=== PATIENT | male | born 1960 | race Caucasian/White ===

== ENCOUNTER 2018-04-13 12:27 | Day surgery (SDC) | payer OTHER ==
[2018-04-13] MEDS ORDERED: DEXAMETHASONE 4 MG/ML VIAL ONE ×2 (13:03→15:52)
[2018-04-13] MEDS ORDERED: BUPIVACAINE 0.5% 30 ML SDV ONE (13:03)
[2018-04-13] MEDS ORDERED: ROPIVACAINE HCL 150 MG/30 ML INJ ONE (13:03)
[2018-04-13] MEDS ORDERED: BACITRACIN 50,000 UNITS/10 ML SYR IRR ONE (13:04)
[2018-04-13] MEDS ORDERED: LIDOCAINE 1% 5 ML SDV ONE ×2 (13:04→15:06)
[2018-04-13] MEDS ORDERED: LR 1,000 ML IV ONE (13:40)
[2018-04-13] MEDS ORDERED: LIDOCAINE 1% 2 ML INJ ID PRN (13:40)
[2018-04-13] MEDS ORDERED: ceFAZolin 2 GM/DEXTROSE 100 ML IV ONE (14:06)
--- NOTE | 2018-04-13 14:08 | PDHPUP ---
History & Physical Update H&P update statement: This history and physical update is based on an assessment of the patient which was completed after admission or registration (within 24 hours), but prior to the surgery/procedure. H&P update: no change in patient's condition since H&P completed (no changes. Patient has had medical H&P clearance ) H&P changes: No changes in health since preop visit
[2018-04-13] MEDS ORDERED: PROPOFOL/EMULSION 500 MG/50 ML BOTTLE IV ONE (14:39)
--- NOTE | 2018-04-13 14:39 | PDANEPAE ---
ANE History of Present Illness here for Toe fusion ANE Past Medical History - Cardiovascular History Hx Hypertension: No Hx Arrhythmias: No Hx Chest Pain: No Hx Coronary Artery / Peripheral Vascular Disease: No Hx CHF / Valvular Disease: No Hx Palpitations: No - Pulmonary History Hx COPD: No Hx Asthma/Reactive Airway Disease: No Hx Recent Upper Respiratory Infection: No Hx Oxygen in Use at Home: No Hx Sleep Apnea: No Sleep Apnea Screening Result - Last Documented: Negative - Neurologic History Hx Cerebrovascular Accident: No Hx Seizures: No Hx Dementia: No Neurologic History Comment: SEIZURES - EPILEPSY - WELL CONTROLLED - Endocrine History Hx Diabetes: No - Renal History Hx Renal Disorders: Yes Renal History Comment: L KIDNEY REMAINING - Liver History Hx Hepatic Disorders: No - Neurological & Psychiatric Hx Hx Neurological and Psychiatric Disorders: No Neurological / Psychiatric History Comment: ANXIETY - Cancer History Hx Cancer: Yes Cancer History Comment: TESTICLE & KIDNEY - Congenital Disorder History Hx Congenital Disorders: No - GI History Hx Gastrointestinal Disorders: No Gastrointestinal History Comment: NEG - Other Health History Other Health History: BASAL CELL - Chronic Pain History Chronic Pain: Yes (TOE) - Surgical History Prior Surgeries: CHILDHOOD CANCER TESTICLE, R KIDNEY. FOOT L BUNION. ANKLE L FX. LASIX ANE Review of Systems Review of Systems: - Exercise capacity METS (RN): 5 METS ANE Patient History - Allergies Allergies/Adverse Reactions: No Known Allergies Allergy (Verified 04/13/18 14:24) - Home Medications Home medications: home medication list seen and reviewed Home Medications: Alprazolam 04/04/18 [Last Taken 04/13/18 08:00] Carbamazepine ER 04/04/18 [Last Taken 04/13/18 08:00] Escitalopram Oxalate 04/04/18 [Last Taken 04/12/18 22:00] Herbals/Supplements -Info Only 04/04/18 [Last Taken 04/12/18 18:00] Lamictal 04/04/18 [Last Taken 04/13/18 08:00] Zolpidem Tartrate 04/04/18 [Last Taken 04/06/18] - NPO status NPO Status: no food or drink >8 hours NPO Since - Liquids (Date): 04/13/18 NPO Since - Liquids (Time): 10:00 NPO Since - Solids (Date): 04/12/18 NPO Since - Solids (Time): 23:00 - Anes Hx Anes Hx: no prior problems - Smoking Hx Smoking Status: Never smoked - Alcohol Use Alcohol Use: Occasionally - Family Anes Hx Family Anes Hx: none Family Hx Anesthesia Complications: NEG ANE Labs/Vital Signs - Vital Signs Blood Pressure: 146/80 Heart Rate: 49 Respiratory Rate: 16 O2 Sat (%): 99 Height: 162.56 cm Weight: 56.699 kg ANE Physical Exam - Airway Neck exam: FROM Mallampati Score: Class 2 Mouth exam: normal dental/mouth exam, garcia - Pulmonary Pulmonary: no respiratory distress, clear to auscultation - Cardiovascular Cardiovascular: regular rate and rhythym, no murmur, rub, or gallop - ASA Status ASA Status: II ANE Anesthesia Plan Anesthesia Plan: GA with mask Total IV Anesthesia: Yes
[2018-04-13] MEDS ORDERED: MIDAZOLAM 2 MG/2 ML VIAL ONE (14:40)
[2018-04-13] MEDS ORDERED: LIDOCAINE 2% 100 MG/5 ML SYR ONE (14:42)
[2018-04-13] MEDS ORDERED: ONDANSETRON 4 MG/2 ML VIAL ONE (15:52)
[2018-04-13] MEDS ORDERED: fentaNYL 100 MCG/2 ML INJ ONE (16:19)
[2018-04-13] MEDS ORDERED: ACETAMINOPHEN 500 MG TAB PO PRN (17:13)
[2018-04-13] MEDS ORDERED: HYDROCODONE/APAP 5/325 TAB PO PRN (17:13)
[2018-04-13] MEDS ORDERED: fentaNYL 100 MCG/2 ML INJ IVP PRN (17:13)
[2018-04-13] MEDS ORDERED: ONDANSETRON 4 MG/2 ML VIAL IVP PRN (17:13)
[2018-04-13] MEDS ORDERED: NALOXONE HCL 0.4 MG/ML INJ IVP PRN (17:13)
[2018-04-13] MEDS ORDERED: oxyCODONE IR 5 MG TAB PO PRN (17:13)
[2018-04-13] MEDS ORDERED: HYDROmorphONE/DILAUDID 2 MG/ML INJ IVP PRN (17:13)
[2018-04-13] MEDS ORDERED: PROMETHAZINE HCL 25 MG/ML INJ IVP PRN (17:13)
--- NOTE | 2018-04-13 17:14 | POSTANESTH ---
Post Anesthetic Evaluation Cardiovascular Status: Normal, Stable, Similar to Pre-Op Cond Respiratory Status: Normal, Stable, Similar to Pre-op Cond. Level of Consciousness/Mental Status: Can Participate in Eval, Alert and Oriented Pain Control: Adequate, Prn Tx Ordered Nausea/Vomiting Control: Adequate, Prn Tx Ordered Complications Possibly Related to Anesthesia: None Noted
--- NOTE | 2018-04-13 17:24 | POSTOPPROG ---
Post Op Note Date of Operation: 04/13/18 Surgeon: Blanche West Web Applications Architect: Karen West Anesthesiologist: Ricardo Watkins MD Anesthesia: LMA Pre-op Diagnosis: hallux rigidus right Post-op Diagnosis: hallux rigidus right Indication: pain ,deformity, advanced DJD Right Procedure: Fusion first MTPJ right foot Findings: Advanced DJD Inf/Abcess present in the surg proc area at time of surgery?: No Depth: Deep Incisional (Fascial) EBL: Minimal Complications: none Specimen(s): none
[2018-04-13 18:25] VITALS: BP 137/62
--- NOTE | 2018-04-14 06:11 | GOP ---
DATE OF OPERATION: SURGEON: Blanche West DPM SOLAR FIELD SERVICE TECHNICIAN: Karen West DPM. ANESTHESIA: General. ANESTHESIOLOGIST: Fran Watkins MD. PREOPERATIVE DIAGNOSIS: Hallux rigidus, right foot. POSTOPERATIVE DIAGNOSIS: Hallux rigidus, right foot. PROCEDURE PERFORMED: Fusion of the 1st metatarsophalangeal joint utilizing Maryjo bone graft, and Fulton plate and screws. FINDINGS: Advanced degeneration first MTPJ, large loose bone fragment dorsal to joint. INDICATIONS: Advanced hallux rigidus, grade 3-4; large dorsal osteophyte; Moderate displacement of the hallux medially. Pain and deformity. The patient at this time elects to proceed with surgery. He was initially very interested in Cartiva, to maintain joint motion. We could not get approval through the insurance. However, I explained to the patient that the ideal procedure ( despite insurance denial of Cartiva) is fusion and not Cartiva. Fusion will provide long-term stability, improve alignment of the big toe, and give relief. As well, once healed, no restriction on activities. After review of fusion and discussion, Bill was comfortable to proceed with fusion. DESCRIPTION OF PROCEDURE: The patient was brought into the operating room, placed on the operating table in a supine position. Intravenous sedation administered by the anesthesiologist. The posterior tibial and peripheral nerve block was obtained utilizing 10 cc of 1% xylocaine plain, 0.5 cc of ropivacaine, and 8 cc of 0.5% Sensorcaine. The lower extremity was prepped and draped in the usual sterile manner. After the limb was elevated, it was exsanguinated with an Esmarch bandage and ankle tourniquet inflated to 230 mmHg , and the procedure was begun. Stockinette utilized under the ankle cuff for padding. Because the patient kept having episodic sudden contractures on the both feet, it was decided to switch the local IV sedation to a full general, thereafter his extremities were noted to be more relaxed. Attention directed toward the enlarged 1st metatarsophalangeal joint where on its dorsal medial aspect, a 6-7 cm incision was created. Incision was carefully deepened with care of neurovascular structures, then clamped and cauterized bleeders. With reflection of the periosteum, a linear capsulotomy had been performed. Extensive hypertrophy was noted along the dorsal aspect of the joint medial and laterally as well. Large dorsal bone fragment at the base of the proximal phalanx, which was removed with a rongeur. 90% of the cartilage was absent on the base of the proximal phalanx with loss of articular contour, more hypertrophied on its medial aspect. First metatarsal head with 75 % of the cartilage absent, bone was sclerotic, central portion of any remaining cartilage was 80% loose and flaking. Digital photos were taken. Sagittal saw was utilized to remove osteophytes as well as dorsal bone spur. Then utilizing the Fulton reamers, the 1st metatarsal head and base of proximal phalanx were prepped for fusion. Cartilage was resected to subchondral bleeding bone. Wound was copiously irrigated with bacitracin irrigation solution, and then subchondral drilling performed as well as use of a pick/microfracture, Maryjo bone graft placed within the joint. Hallux was placed in optimal position. Temporary fixation achieved with a K-wire and various plates were sized, and it was determined the 0 degree longer Fulton plate fit best. It was temporally fixated with tacks, and then a compression screw was placed from distal medial to proximal lateral, a 3.5 mm x 34 mm headless cannulated screw. With loading of the forefoot, satisfactory alignment noted of the hallux. Note, C-arm pictures were taken throughout the procedure to verify alignment and positioning. With loading of the forefoot, there appeared to be satisfactory space for the hallux for dorsiflexion. Hallux was significantly shortened due to the amount of sclerotic bone at the joint, needed to resect enough to get to subchondral healthy bleeding bone. Because of the shortening of the hallux, I did not want to get too much elevation on that hallux, and therefore chose the 0 degree plate for optimal purchase and function. The plate was then secured where a distal locking 2.7 screw measuring 14 mm length was placed. Then the proximal nonlocking compression screw was placed, this was a 3.5 mm, 18 mm long screw. Then a distal locking screw was placed, a 2.7, 16 mm in length; then a proximal locking screw, a 3.5 measuring 16 mm in length. Then finally another distal locking screw 3.5 mm and 14 mm in length, and finally another locking screw proximally measuring 2.7 and 17 mm in length. One hole proxoimally could not be used as with drilling , even at an angle, impingement was noted to the compression screw. Note, with the initial compression screw, excellent compression achieved and then excellent fixation with the plate and screws stabilizing the fusion site. Throughout the procedure, the wound was copiously irrigated with bacitracin irrigation solution. Capsular and periosteal closure achieved with 2-0 and 3-0 Vicryl. Tourniquet was released and a normal hyperemic response was noted to all digits. Subcutaneous closure was then achieved with 4-0 Monocryl and the skin was closed with 4-0 Prolene in horizontal mattress and single interrupted suture manner. Dressings included Xeroform, 4x4s, fluffs, Brayden, reinforced with tape and an Logan bandage. The patient tolerated the procedure and anesthesia very well, and left the operating room with vital signs stable and vascular status intact to all digits. There were no intraoperative complications. In postoperative recovery, the patient was very comfortable and doing well. I tried reaching his on her cell phone, and left a message that everything went well and she may contact me at any point if she has any questions. I left her my cell number. The patient is to follow up the office in 2 days for wound check. Prognosis good. /[id number]/MODL MTDD
== END 2018-04-13 18:26 | disposition home or self-care (01) ==
LOC: FSGY 12:27
PROVIDERS: ATTEND Podiatrist
PROC: 0SGM04Z Fusion of Right Metatarsal-Phalangeal Joint with Internal Fixation Device, Open Approach (ICD-10-PCS; principal; 2018-04-13 14:15)
DX: M20.21 Hallux rigidus, right foot (principal); M25.774 Osteophyte, right foot; M19.071 Primary osteoarthritis, right ankle and foot; M79.671 Pain in right foot; F32.9 Major depressive disorder, single episode, unspecified; G40.909 Epilepsy, unspecified, not intractable, without status epilepticus; Z85.528 Personal history of other malignant neoplasm of kidney; Z85.47 Personal history of malignant neoplasm of testis; Z90.5 Acquired absence of kidney
CPT/HCPCS: C1713; J0690; J1100; J2001; J2250; J2405; J2704; J2795; J3010